=== PATIENT | male | born 1970 | race Caucasian/White ===

== ENCOUNTER 2016-07-22 15:30 | Emergency (ER) | payer OTHER ==
[2016-07-22] MEDS ORDERED: BUPIVACAINE HCL 0.25 % INJ/PF (2.5 MG/1 ML) 30 ML VIAL INJ ONE (16:12)
[2016-07-22] MEDS ORDERED: LIDOCAINE 1% INJ (10 MG/ML) 10 ML MDV INJ ONE (16:13)
--- NOTE | 2016-07-22 16:26 | ER Document Report ---
ED Medical Screen (RME) - General Chief Complaint: Toe Injury Stated Complaint: TOE PAIN TRAVEL OUTSIDE OF THE [place] IN LAST 30 DAYS: No - Related Data Allergies/Adverse Reactions: No Known Allergies Allergy (Verified 07/22/16 15:34) Past Medical History Renal/ Medical History: Denies: Hx Peritoneal Dialysis Physical Exam - Vital signs Vitals: Temp Pulse Resp BP Pulse Ox 98.2 F 83 12 135/83 H 98 07/22/16 15:34 07/22/16 15:34 07/22/16 15:34 07/22/16 15:34 07/22/16 15:34 Course - Vital Signs Vital signs: Temp Pulse Resp BP Pulse Ox 98.2 F 83 12 135/83 H 98 07/22/16 15:34 07/22/16 15:34 07/22/16 15:34 07/22/16 15:34 07/22/16 15:34
[2016-07-22] MEDS ORDERED: LIDOCAINE 1% INJ-PF (10 MG/ML) 30 ML SDV ONE (16:32)
--- NOTE | 2016-07-22 16:33 | ER Document Report ---
ED Extremity Problem, Lower - General Mode of Arrival: Ambulatory Information source: Patient TRAVEL OUTSIDE OF THE [place] IN LAST 30 DAYS: No - HPI Patient complains to provider of: Pain - left 1st toe, Swelling - left first toe Occurred: Other - 1 week ago <GABRIELA SIMS - Last Filed: 07/22/16 19:20> <JOYCELYNMELINDA SUKUMAR - Last Filed: 07/22/16 19:38> - General Chief Complaint: Toe Injury Stated Complaint: TOE PAIN Notes: 45 year old male with history of diabetes presents to the ED complaining of pain and swelling to the left 1st toe that started 1 week ago when he stepped on a briar and it pierced his 1st toe. Patient was unaware that he stepped on a briar until 5 days ago when he saw the thorn and pulled it out. Patient reports puss coming out of his toe when he pulled the briar out. The pain and swelling got significantly worse yesterday stating that his pain is shooting up his leg now. [facility] (GABRIELA SIMS) - Related Data Allergies/Adverse Reactions: No Known Allergies Allergy (Verified 07/22/16 15:34) Past Medical History - General Information source: Patient - Social History Smoking Status: Unknown if Ever Smoked Family History: Reviewed & Not Pertinent Patient has suicidal ideation: No Patient has homicidal ideation: No - Past Medical History Cardiac Medical History: Reports: Hx DVT Endocrine Medical History: Reports: Hx Diabetes Mellitus Type 2 Renal/ Medical History: Denies: Hx Peritoneal Dialysis <GABRIELA SIMS - Last Filed: 07/22/16 19:20> Review of Systems - Review of Systems Constitutional: No symptoms reported EENT: No symptoms reported Cardiovascular: No symptoms reported Respiratory: No symptoms reported Gastrointestinal: No symptoms reported Genitourinary: No symptoms reported Male Genitourinary: No symptoms reported Musculoskeletal: See HPI, Other - pain and swelling to the first left toe Skin: No symptoms reported Hematologic/Lymphatic: No symptoms reported Neurological/Psychological: No symptoms reported -: Yes All other systems reviewed and negative <GABRIELA SIMS - Last Filed: 07/22/16 19:20> Physical Exam - General General appearance: Alert In distress: None - HEENT Head: Normocephalic, Atraumatic Eyes: Normal Extraocular movements intact: Yes Pupils: PERRL - Respiratory Respiratory status: No respiratory distress Breath sounds: Normal - Cardiovascular Rhythm: Regular Heart sounds: Normal auscultation - Abdominal Inspection: Normal Distension: No distension Tenderness: Nontender - Back Back: Normal - Extremities General upper extremity: Normal inspection, Normal ROM General lower extremity: Normal ROM. No: Normal inspection - see foot exam below Foot: Other - Erythema over top of the left 1st toe with swelling and fluctuance. Warm to touch.. No: Normal - Neurological Neuro grossly intact: Yes Cognition: Normal Orientation: AAOx4 Barker Coma Scale Eye Opening: Spontaneous Barker Coma Scale Verbal: Oriented Latricia Coma Scale Motor: Obeys Commands Barker Coma Scale Total: 15 Speech: Normal - Psychological Associated symptoms: Normal affect, Normal mood - Skin Skin Temperature: Warm Skin Moisture: Dry Skin Color: Normal <GABRIELA SIMS - Last Filed: 07/22/16 19:20> Course - Consults Dr. Esposito Time consulted: 16:08 <GABRIELA SIMS - Last Filed: 07/22/16 19:20> <MELINDA HIRSCH - Last Filed: 07/22/16 19:38> - Re-evaluation Re-evalutation: 07/22/16 Patient with an infection of his left great toe. He is diabetic. Discussed with Dr. Esposito who came to see the patient. Area was cleaned and anesthetized with a digital block before incision was made into the base of the left great toe. Please see procedure note. Patient tolerated well. Wound packed. Augmentin started. Tetanus given. Patient is to follow-up with Dr. Esposito on . Return sooner if he has any worsening or concerning symptoms. Patient was cleaned and placed in a postop shoe for comfort. (MELINDA HIRSCH) - Vital Signs Vital signs: Temp Pulse Resp BP Pulse Ox 98.2 F 72 16 125/63 98 07/22/16 17:48 07/22/16 17:48 07/22/16 17:48 07/22/16 17:48 07/22/16 17:48 - Consults Dr. Esposito Reason for consultation: 07/22/16 16:08 Patient was discussed with Dr. Esposito and he agrees to come to the ED and evaluate the patient. (GABRIELA SIMS) Procedures - Incision and Drainage Left Toe Great toe Type: Complex Anesthetic type: 1% Lidocaine, 0.5% Bupivacaine Blade size: 11 I&D procedure: Betadine prep applied, Iodoform packing placed Incision Method: Incision made by scalpel Amount/type of drainage: 6 cc purulent d/c - Immobilization Left Toe Pre-Proc Neuro Vasc Exam: Normal Immobilizer type: Post-op shoe Performed by: PCT <MELINDA HIRSCH - Last Filed: 07/22/16 19:38> Discharge <GABRIELA SIMS - Last Filed: 07/22/16 19:20> <MELINDA HIRSCH - Last Filed: 07/22/16 19:38> - Discharge Clinical Impression: Abscess of great toe of left foot Condition: Stable Disposition: HOME, SELF-CARE Instructions: Abscess ([facility]), Post Incision and Drainage, Post-Op Shoe ([facility]) Prescriptions: Amox Tr/Potassium Clavulanate [Augmentin 875-125 Tablet] 1 tab PO BID 14 Days Referrals: JÚNIOR LARSON MD [Primary Care Provider] - Follow up in 3-5 days ELSIE ESPOSITO MD [ACTIVE STAFF] - 07/24/16 Scribe Attestation: 07/22/16 19:38 I personally performed the services described in the documentation, reviewed and edited the documentation which was dictated to the scribe in my presence, and it accurately records my words and actions. (MELINDA HIRSCH) Scribe Documentation - Scribe Written by Fritziberendira:: Vivek Stark, 07/22/2016 1633 acting as scribe for :: Joycelyn <GABRIELA SIMS - Last Filed: 07/22/16 19:20>
--- NOTE | 2016-07-22 16:49 | PDOC CONSULTATION ---
Consultation Consult Date: 07/22/16 Consult reason:: Left great toe infection History of Present Illness Admission Date/PCP: Patient's a 45-year-old diabetic white male who incurred a foreign body into the plantar surface of his left great toe. The patient retrieved the prior but has subsequently had pain, swelling and discomfort with the toe. Presents emergency room for evaluation and treatment. History of Present Illness: JAIMIE BOND is a 45 year old male Past Medical History Cardiac Medical History: Reports: DVT Endocrine Medical History: Reports: Diabetes Mellitus Type 2 Social History Smoking Status: Unknown if Ever Smoked Family History Family History: Reviewed & Not Pertinent Parental Family History Reviewed: No Children Family History Reviewed: No Sibling(s) Family History Reviewed.: No Medication/Allergy Allergies/Adverse Reactions: No Known Allergies Allergy (Verified 07/22/16 15:34) Review of Systems All systems: as per H Physical Exam Vital Signs: Temp Pulse Resp BP Pulse Ox 36.8 C 83 12 135/83 H 98 07/22/16 15:34 07/22/16 15:34 07/22/16 15:34 07/22/16 15:34 07/22/16 15:34 Intake & Output 07/21/16 07/22/16 07/23/16 06:59 06:59 06:59 Weight 106.2 kg Physical Exam: The patient's a moderately built middle-age white male lying on the ER gurney. He is in minimal distress. General appearance: PRESENT: no acute distress Head exam: PRESENT: normocephalic Eye exam: PRESENT: EOMI Respiratory exam: PRESENT: unlabored Cardiovascular exam: PRESENT: RRR Pulses: PRESENT: +1 pedal pulses bilateral Vascular exam: PRESENT: normal capillary refill GI/Abdominal exam: PRESENT: soft Rectal exam: PRESENT: deferred Extremities exam: PRESENT: other - Examination the foot and ankle reveal no ascending erythema tenderness. The great toe is erythematous and bulbous. On the plantar surface. There was a clear entrance wound that has healed over. Proximal and lateral to this is an area that seems to have fluctuance. There is brisk capillary refill. Patient denies any sensory neuropathy and over the course of examination and treatment. It's clear that there is an underlying deficit Neurological exam: PRESENT: alert, oriented to person, oriented to place, oriented to time, oriented to situation Psychiatric exam: PRESENT: appropriate affect, normal mood. ABSENT: homicidal ideation, suicidal ideation Skin exam: PRESENT: dry, intact, warm. ABSENT: cyanosis, rash Results Status: Imported from PACS Assessment & Plan - Diagnosis (1) Abscess of great toe of left foot Is this a current diagnosis for this admission?: YesPlan: In conjunction with Dr. Rosario a digital block is performed followed by irrigation debridement of this of the great toe. The wound is packed. A sterile compressive dressing was applied. - Plan Summary Plan Summary: Patient be discharged on oral antibiotic therapy and return to see Dr. Esposito in the [facility] for surgery on for wound check.
[2016-07-22] MEDS ORDERED: AMOXICILLIN TR/POT CLAVULANATE 250-62.5 MG/5 ML 75 ML PO ONE (17:28)
[2016-07-22] MEDS ORDERED: ONDANSETRON 4 MG TAB.RAPDIS PO ONE (17:28)
[2016-07-22] MEDS ORDERED: AMOXICILLIN TR/POT CLAVULANATE 500-125 MG TAB PO ONE (17:28)
[2016-07-22] MEDS ORDERED: DIPH/PERTUSS(ACELL)/TETANUS VAC/PF 0.5 ML SYR (>=10YO) IM ONE (17:29)
[2016-07-22 17:55] VITALS: BP 125/63
== END 2016-07-22 17:55 | disposition home or self-care (01) ==
LOC: ER 15:30
PROC: 0H9NXZZ Drainage of Left Foot Skin, External Approach (ICD-10-PCS; principal; 2016-07-22)
DX: L02.612 Cutaneous abscess of left foot (principal); S99.929A Unspecified injury of unspecified foot, initial encounter; X58.XXXA Exposure to other specified factors, initial encounter
CPT/HCPCS: 99284; 90471; 87070; 87205; 87075; 87077; 87186; 73630; 90715; 10060; S0119; J3490